=== PATIENT | female | born 1940 | race Caucasian/White ===

== ENCOUNTER → 2017-07-13 | Outpatient (CLI) | payer MEDICARE ==
[2017-07-13 11:17] LABS: Blood Urea Nitrogen 16 mg/dL (7-17)
== END | disposition home or self-care (01) ==
LOC: LABWHC1 10:22
PROVIDERS: ATTEND Physical Medicine & Rehabilitation
DX: Z01.812 Encounter for preprocedural laboratory examination (principal); N28.9 Disorder of kidney and ureter, unspecified
CPT/HCPCS: 36415; 82565; 84520

== ENCOUNTER → 2017-10-08 | Outpatient (CLI) | payer MEDICARE ==
[2017-10-08 08:53] LABS: Basophils % (A) 0 %; Eosinophils # (A) 0.2 k/uL (0-0.7); Eosinophils % (A) 3 %; HCT 42.6 % (34.0-46.0); HGB 13.7 gm/dL (11.4-16.0); Lymphocytes # (A) 1.5 k/uL (1.0-4.8); Lymphocytes % (A) 27 %; MCH 28.8 pg (25.0-35.0); MCHC 32.3 g/dL (31.0-37.0); MCV 89.3 fL (80.0-100.0); Mean Platelet Volume 7.4; Monocytes # (A) 0.4 k/uL (0-1.0); Monocytes % (A) 7 %; Neutrophils # (A) 3.3 k/uL (1.3-7.7); Neutrophils % (A) 60 %; Platelet Count 209 k/uL (150-450); RBC 4.77 m/uL (3.80-5.40); WBC 5.5 k/uL (3.8-10.6)
[2017-10-08 08:56] LABS: Appearance,Urine Clear (Clear); Bilirubin,Urine Negative (Negative); Blood,Urine Negative (Negative); Color,Urine Yellow; Glucose,Urine (UA) Negative (Negative); Ketones,Urine Negative (Negative); Leukocyte Esterase,Urine Moderate (Negative); Mucus,Urine Rare /hpf; Nitrite,Urine Negative (Negative); PH, Urine 5.5 (5.0-8.0); Protein,Urine Negative (Negative); RBC,Urine 1 /hpf (0-5); Specific Gravity,Urine 1.017 (1.001-1.035); Urobilinogen,Urine <2.0 mg/dL (<2.0); WBC,Urine 4 /hpf (0-5)
[2017-10-08 09:05] LABS: Albumin 3.9 g/dL (3.5-5.0); Calcium 9.7 mg/dL (8.4-10.2); Potassium 4.6 mmol/L (3.5-5.1); Total Bilirubin 0.5 mg/dL (0.2-1.3); Total Protein 6.3 g/dL (6.3-8.2)
[2017-10-08 09:20] LABS: T4, Free (Free Thyroxine) 1.04 ng/dL (0.78-2.19)
[2017-10-08 17:19] LABS: Iron Saturation 32.64 (12.00-45.00); Rheumatoid Factor 6 IU/mL (0-15)
[2017-10-08 17:48] LABS: Folate, Serum >24.0 ng/mL
[2017-10-08 18:57] LABS: Hemoglobin A1C 5.7 % (4.0-6.0)
[2017-10-09 11:24] LABS: ANA Pattern Homogeneous
== END | disposition home or self-care (01) ==
LOC: LABWHC1 08:13
PROVIDERS: ATTEND Internal Medicine
DX: Z00.00 Encounter for general adult medical examination without abnormal findings (principal); C20 Malignant neoplasm of rectum; M19.90 Unspecified osteoarthritis, unspecified site; E78.00 Pure hypercholesterolemia, unspecified; G62.9 Polyneuropathy, unspecified
CPT/HCPCS: 36415; 80053; 80061; 81001; 82378; 82550; 82607; 82728; 82746; 83036; 83540; 83550; 83883; 84439; 84443; 84550; 85025; 86038; 86039; 86431

== ENCOUNTER → 2017-11-20 | Outpatient (CLI) | payer MEDICARE ==
[2017-11-20 15:13] LABS: T4, Free (Free Thyroxine) 0.95 ng/dL (0.78-2.19)
== END | disposition home or self-care (01) ==
LOC: LABWHC1 14:23
PROVIDERS: ATTEND Otolaryngology
DX: E04.1 Nontoxic single thyroid nodule (principal)
CPT/HCPCS: 36415; 84439; 84443; 86376

== ENCOUNTER → 2017-11-29 | Outpatient (CLI) | payer MEDICARE, OTHER ==
--- NOTE | 2017-11-29 10:21 | US ---
EXAMINATION TYPE: US thyroid st tissue head/neck DATE OF EXAM: 11/29/2017 COMPARISON: NONE CLINICAL HISTORY: E04.[address] exam enlarged thyroid GLAND SIZE: Right Lobe: 3.6 x 1.4 x 1.2 cm Overall Parenchyma: heterogenous Left Lobe: 3.8 x 1.4 x 1.3 cm Overall Parenchyma: homogeneous Isthmus Thickness: 0.3 cm NODULES RIGHT: # of nodules measured on right: 0 LEFT: # of nodules measured on left: 1 1. 0.7 X 0.7 x 0.5 cm mixed nodule at the mid pole with well-defined margins; . This nodule is wid er than tall and shows intranodular vascularity. Prior size: no prior ISTHMUS: # of nodules measured in the isthmus: 0 Bilateral neck scanned, no evidence of lymphadenopathy. IMPRESSION: Nonspecific subcentimeter nodule left thyroid lobe.
== END | disposition home or self-care (01) ==
LOC: RADUSWWP 09:35
PROVIDERS: ATTEND Otolaryngology
DX: E04.1 Nontoxic single thyroid nodule (principal)
CPT/HCPCS: 76536

== ENCOUNTER → 2018-01-11 | Day surgery (SDC) | payer MEDICARE, OTHER ==
[2018-01-04 15:55] VITALS: BMI 25.7
[~2018-01-11] MED LIST: ACETAMINOPHEN TAB 500 MG TAB PO ONE; DEXAMETHASONE SOD PHOSPHATE 10 MG/ML 1 ML VIAL IV ONE; EPINEPHrine 4 MG in SODIUM CHLORIDE 0.9% IRRIGATIO 3,000 ML IRRIGATION ONE; GLYCOPYRROLATE 0.2 MG/ML 2 ML VIAL ONE; HYDROcodone/APAP 5-325MG 1 EACH TAB PO ONE; LACTATED RINGERS 1,000 ML IV ONE; LACTATED RINGERS 1,000 ML IV SCH; LIDOCAINE 1% 20 ML VIAL (10MG/ML) FOR IV START INTRADERMA PRN; LIDOCAINE 1% INJ 10MG/ML (20 ML MDV) ONE; LIDOCAINE 2%-EPI 1:100,000 20 ML VIAL ONE; MIDAZOLAM 2 MG/2 ML VIAL IVP ONE; ONDANSETRON 4 MG/2 ML VIAL IVP ONE; PROPOFOL 10 MG/ML 20 ML VIAL IV ONE; ROPIVACAINE 5 MG/ML 30 ML VIAL ONE; SCOPOLAMINE 1.5MG/72HR PATCH TRANSDERM ONE; SODIUM CHLORIDE 0.9% 100 ML BAG ONE; SUCCINYLCHOLINE CHLORIDE 100 MG/5 ML SYR IV ONE; TRANEXAMIC ACID 1,000 MG in SODIUM CHLORIDE 0.9% 50 ML IVPB ONE; TRANEXAMIC ACID 1,000 MG/10 ML VIAL ONE; ceFAZolin IN SWFI 2 GM/20 ML SYRINGE IVP ONE; fentaNYL (PF) 50 MCG/ML 2 ML AMP IVP ONE; fentaNYL (PF) 50 MCG/ML 2 ML AMP ONE
[2018-01-11 12:42] VITALS: RESP 16
[2018-01-11 17:55] VITALS: TEMP 98
--- NOTE | 2018-01-11 18:09 | P.OP ---
Date of Procedure: 01/11/18 Procedure(s) Performed: PREOPERATIVE DIAGNOSES: 1. Right shoulder rotator cuff tear. 2. Chronic impingement syndrome. 3. Acromioclavicular osteoarthritis. 4. Superior labral degenerative tear. POSTOPERATIVE DIAGNOSES: 1. Right shoulder large rotator cuff tear (supraspinatus and part infraspinatus, 3 cm). 2. Chronic impingement syndrome. 3. Acromioclavicular osteoarthritis. 4. Labral degenerative tear. 5. Severe biceps tendon degeneration 6. Moderate adhesions glenohumeral joint and subacromial space PROCEDURES PERFORMED: 1. Right shoulder arthroscopy with rotator cuff repair 2. Arthroscopic subacromial decompression 3. Arthroscopic partial distal clavicle excision 4. Arthroscopic debridement superior labral tear and biceps tenotomy 5. Arthroscopic lysis of adhesions with subacromial bursectomy ANESTHESIA: General. ESTIMATED BLOOD LOSS: Less than 25 mL TOURNIQUET: None TELLER: Erin Dumont PA-C (assistance with: Positioning, retraction , camera operation, repair, closure, dressing) COMPLICATIONS: None. DISPOSITION: To postanesthesia care unit INDICATIONS: Mrs. Plasencia is a 77 year old female with a history of rotator cuff difficulties. She is very active, [id number], and has noted progressive weakness and pain with regard to the right shoulder.. MRI was indicative of a significant tear, and the patient wishes to have it repaired. I have examined the patient in the office and proposed rotator cuff repair via an arthroscopic or mini-open approach, as well as other procedures to optimize the shoulder and outcome, such as decompression of spurs and debridement of loose or degenerated tissue. She has fairly significant rotator cuff atrophy and fat deposition into the supraspinatus fossa which I have explained to her may compromise her ultimate outcome and strength. I have explained the risks of this surgery as being inclusive of, but not limited to: bleeding, infection, scarring, discomfort, blood vessel and/or nerve damage, need for further surgery , stiffness, persistence or worsening of problems, , and other risks. The consent form has been completed and signed. PROCEDURE: Appropriate consent was obtained from the patient. The patient was taken to the operating room and placed in the supine position. General anesthesia was initiated and after confirmation of adequate anesthesia, the patients right shoulder was examined. Initial range of motion showed flexion to 160 abduction to 150, external rotation to 60 and internal rotation to 50. Using Codman's paradox maneuver, the shoulder was gently manipulated into full range of motion with forward flexion being 175, abduction 175, external rotation 75 and internal rotation with the arm in abduction 70 . The shoulder was stable. Next, the patient was rotated into the lateral decubitus position and stabilized to the table with a gordon bag and padded straps. Care was taken to make sure that all pressure points were adequately padded. Bear-hugger was used along with bilateral leg sequential compression devices. Prepping and draping was completed in the usual aseptic fashion using ChloraPrep. The patient received intravenous antibiotics prior to incision. The shoulder was suspended from traction with 15 lbs. of weight in a position of 45 degrees abduction. Landmarks were outlined with a skin marking pen. A spinal needle was inserted into the glenohumeral joint and fluid was administered to distend the joint. Minimal pressure was noted after 100 mL was administered. A posterior portal was created using an 11 blade and the arthroscopic canula, over a dull trocar, was carefully inserted into the joint. Arthroscopy then commenced. An anterior portal was inserted in the rotator interval area using inside-out technique. Biceps tendon showed severe deterioration. Biceps tenotomy was performed using a shaver. The tendon stump was then allowed to retract into the bicipital groove. Teres minor attachment was normal. Subscapularis tendon was normal. Hyaline cartilage of the glenoid and humeral head showed degenerative changes typical for age. Minor chondral smoothing using a radio frequency device on a low setting was performed. Supraspinatus attachment after superficial debridement showed a 3 cm tear which was full thickness and extended into the infraspinatus tendon. No loose bodies were noted in the joint. Superior labrum showed moderate degenerative tearing but was well-attached. Negative peel back sign. There was also evidence of minor degenerative labral tearing in the inferior area. Loose fibers of labrum in this area were debrided away back to stable labrum. Synovitis with adhesions was noted superior to the superior labrum and within the rotator interval. This was debrided and removed where the capsule appeared inflamed, using an arthroscopic shaver. Attention was then directed to the subacromial space. The camera and instruments were redirected into the subacromial space and bursoscopy was performed. The patients bursa was inflamed and thickened, indicating chronic bursitis. A lateral portal was created using outside-in technique. The supraspinatus tendon was examined particularly closely. There was an approximately 3 cm full thickness U-shaped tear. The loose fibers of the tear were debrided back to stable tissue and the defect in the tendon was repaired arthroscopically after careful preparation of the supraspinatus footprint with cassandra and rasp to create a good bleeding surface of bone, see below. Tendon quality however was somewhat poor with very limited mobility of the tendon at the bottom of the U, but adequate mobility of the anterior and posterior leaflets. The subacromial bursa contained moderate degenerative appearing adhesions within the superior space, but also the lateral anterior and posterior spaces as well. This degenerative material which consisted of thickened bursal material, was resected using a shaver. Meticulous hemostasis was maintained using the ArthroCare device. The undersurface of the acromion had frictional changes consistent with impingement syndrome. The underside of the acromion anteriorly was cleared of soft tissue using an arthroscopic radiofrequency ablator. The frictional changes of the rotator cuff matched exactly the location of the rotator cuff tear in the critical zone. A minimal subacromial decompression was performed using a cassandra. Approximately 3-4 mm of material was removed from the anterior-inferior corner of the acromion where a spur was located. This resection was carefully beveled upwards laterally, and carried to the AC joint. The AC joint appeared arthritic with inferior spurring. This spurring was removed with a cassandra, co-planing the resection with the acromial resection. The rotator cuff tear was then repaired as follows. Supraspinatus footprint was debrided back to bleeding bone using a cassandra. Full decortication was not performed. 3 simple margin convergence type sutures of #2 FiberWire were deployed into the medial portion of the rotator cuff tear. A reverse mattress suture using Fiber Tape from [employer] was deployed into the torn supraspinatus edge. A 4.75 mm Swivelock anchor was then deployed at the greater tuberosity and the suture tension was adjusted so that there was complete reduction and coverage of the footprint. The #2 suture contained within the anchor was also used for additional fixation of the cuff tissue, and applying a horizontal mattress type suture and tying the suture with alternating half hitches arthroscopically. It was noted that there was complete closure of the cuff defect. The repair was stable. Subsequently, 4-0 Monocryl was used to close the portal holes. Steri-strips were applied as well as sterile dressing. The shoulder was then placed into a sling and the patient was transferred to recovery room in stable condition. Sponge and needle counts were correct.
[2018-01-11] MEDS: HYDROmorphone 0.5 MG/0.5 ML SYRINGE IVP PRN ×3 (18:11→18:29)
[2018-01-11 19:12] VITALS: BP 172/83; PULSE 80
--- NOTE | 2018-01-16 09:50 | CDI ---
Date: 01/16/18 CDS/Farebox Repairer Name: Sangita Germain Phone: If any questions, call [facility] [employer] Maker at [phone] Patient Name: Gin Plasencia Admit Date: 01/11/18 Discharge Date: 01/11/18 ATTENTION: The [facility] Coding Staff appreciate your assistance in clarifying documentation. Please respond to the clarification below the line at the bottom and electronically sign. The [facility] Coding staff will review the response and follow-up if needed. Please note: Queries are made part of the Legal Health Record. If you have any questions, please contact the Fiberglass Boat Maker. Dear Dr. Chicas, Please provide clarification on the Single nerve block injection arm that is charged on this account. Please clarify if this is part of the anesthesia for the procedure or for post-operative pain. Thank you for your kind consideration. MTDD
--- NOTE | 2018-01-29 14:09 | CDI ---
Date: 01/29/18 CDS/Inspector Final Assembly Electrical Name: Sangita Germain Phone: If any questions, call Valencia Owusu Leadership Program Associate at [phone] Patient Name: Gin Plasencia Admit Date: 01/11/18 Discharge Date: 01/11/18 ATTENTION: The [facility] Coding Staff appreciate your assistance in clarifying documentation. Please respond to the clarification below the line at the bottom and electronically sign. The [facility] [facility] Coding staff will review the response and follow-up if needed. Please note: Queries are made part of the Legal Health Record. If you have any questions, please contact the Leadership Program Associate. Dear Dr. Chicas, Please provide clarification on the Single nerve block injection arm that is charged on this account. Please clarify if this is part of the anesthesia for the procedure or for post-operative pain. Thank you for your kind consideration. MTDD
== END | disposition home or self-care (01) ==
LOC: OR 12:10
PROVIDERS: ATTEND Orthopaedic Surgery
DX: M75.101 Unspecified rotator cuff tear or rupture of right shoulder, not specified as traumatic (principal); M75.41 Impingement syndrome of right shoulder; M19.90 Unspecified osteoarthritis, unspecified site; S43.431A Superior glenoid labrum lesion of right shoulder, initial encounter; X58.XXXA Exposure to other specified factors, initial encounter; M75.01 Adhesive capsulitis of right shoulder; E03.9 Hypothyroidism, unspecified; E78.5 Hyperlipidemia, unspecified; E06.3 Autoimmune thyroiditis; M35.00 Sjogren syndrome, unspecified; Z85.048 Personal history of other malignant neoplasm of rectum, rectosigmoid junction, and anus; Z79.890 Hormone replacement therapy; Z79.899 Other long term (current) drug therapy
CPT/HCPCS: 29826; 29827; 29824; 64415; C1713 ×2; C1894; J0171; J2250; J1100; J2405; J2001; J3010; J2795; J0330; J2704; J1170; J0690

== ENCOUNTER → 2019-08-29 | Outpatient (CLI) | payer MEDICARE, OTHER ==
[2019-08-29 09:05] LABS: Basophils % (A) 1 %; Eosinophils # (A) 0.3 k/uL (0-0.7); Eosinophils % (A) 6 %; HCT 43.5 % (34.0-46.0); HGB 13.6 gm/dL (11.4-16.0); Lymphocytes # (A) 1.7 k/uL (1.0-4.8); Lymphocytes % (A) 31 %; MCH 28.5 pg (25.0-35.0); MCHC 31.2 g/dL (31.0-37.0); MCV 91.2 fL (80.0-100.0); Mean Platelet Volume 7.9; Monocytes # (A) 0.4 k/uL (0-1.0); Monocytes % (A) 7 %; Neutrophils # (A) 2.9 k/uL (1.3-7.7); Neutrophils % (A) 54 %; Platelet Count 195 k/uL (150-450); RBC 4.77 m/uL (3.80-5.40); RDW 13.4 % (11.5-15.5); WBC 5.5 k/uL (3.8-10.6)
[2019-08-29 16:14] LABS: African American GFR (CKD) 94.2 (60.0-200.0); Albumin 4.1 g/dL (3.80-4.90); Albumin/Globulin Ratio 2.16 (1.60-3.17); Anion Gap 6.7 mmol/L (4.00-12.00); BUN/Creat Ratio 31.43 Ratio (12.00-20.00); Calcium 9.3 mg/dL (8.7-10.3); Carbon Dioxide 26.3 mmol/L (21.6-31.8); Chol/HDL Ratio 3.04; Globulin 1.9 g/dL (1.6-3.3); LDL Cholesterol,Calculated 142.4 mg/dL (0.0-131.0); Non-African American GFR(CKD) 81.3 (60.0-200.0); Potassium 5.1 mmol/L (3.5-5.5); Total Bilirubin 0.4 mg/dL (0.2-1.2); VLDL Calculation 14.6 mg/dL (5.00-40.00)
[2019-08-29 16:21] LABS: T4, Free (Free Thyroxine) 1.1 ng/dL (0.80-1.80)
== END | disposition home or self-care (01) ==
LOC: LABWHC1 08:22
PROVIDERS: ATTEND Internal Medicine
DX: E78.2 Mixed hyperlipidemia (principal); E03.9 Hypothyroidism, unspecified; M19.049 Primary osteoarthritis, unspecified hand
CPT/HCPCS: 36415; 80053; 80061; 84439; 84443; 85025

== ENCOUNTER → 2020-01-02 | Outpatient (CLI) | payer MEDICARE, OTHER ==
--- NOTE | 2020-01-02 11:32 | FL ---
EXAMINATION TYPE: FL UGI air w esophagus DATE OF EXAM: 01/02/2020 11:25 AM COMPARISON: NONE CLINICAL HISTORY: Difficulty in swallowing. Preliminary view of the abdomen reveals a normal bowel gas pattern. Upper GI examination was performed according to the single contrast technique. Esophageal peristal sis and motility are within normal limits. There is no evidence for esophagitis, intraluminal mass, or gastroesophageal reflux. Small sliding-type hiatal hernia noted. The stomach has a normal appeara nce in terms of its size, shape and location. No gastric filling defects or ulcer craters are seen. The duodenal bulb and sweep are also free of intraluminal lesion or ulcer crater. And single contrast cervical esophagram was also performed following the ingestion of thin liquid bar ium. There is no evidence for aspiration or penetration. No masses are seen. There is hypertrophy o f the cricopharyngeus muscle mild in degree. IMPRESSION: 1. Hypertrophy of the cricopharyngeus muscle mild in degree. 2. Small sliding-type hiatal hernia.
== END | disposition home or self-care (01) ==
LOC: RADUSWWP 10:48
PROVIDERS: ATTEND Internal Medicine
DX: J39.2 Other diseases of pharynx (principal); K44.9 Diaphragmatic hernia without obstruction or gangrene
CPT/HCPCS: 74246

== ENCOUNTER → 2021-10-07 | Outpatient (CLI) | payer MEDICARE ==
[~2021-10-07] MED LIST changes: -ACETAMINOPHEN TAB 500 MG TAB PO ONE; -DEXAMETHASONE SOD PHOSPHATE 10 MG/ML 1 ML VIAL IV ONE; -EPINEPHrine 4 MG in SODIUM CHLORIDE 0.9% IRRIGATIO 3,000 ML IRRIGATION ONE; -GLYCOPYRROLATE 0.2 MG/ML 2 ML VIAL ONE; -HYDROcodone/APAP 5-325MG 1 EACH TAB PO ONE; -LACTATED RINGERS 1,000 ML IV ONE; -LACTATED RINGERS 1,000 ML IV SCH; -LIDOCAINE 1% 20 ML VIAL (10MG/ML) FOR IV START INTRADERMA PRN; -LIDOCAINE 1% INJ 10MG/ML (20 ML MDV) ONE; -LIDOCAINE 2%-EPI 1:100,000 20 ML VIAL ONE; -MIDAZOLAM 2 MG/2 ML VIAL IVP ONE; -ONDANSETRON 4 MG/2 ML VIAL IVP ONE; -PROPOFOL 10 MG/ML 20 ML VIAL IV ONE; +REGADENOSON 0.4 MG/5 ML SYRINGE IV PRN; -ROPIVACAINE 5 MG/ML 30 ML VIAL ONE; -SCOPOLAMINE 1.5MG/72HR PATCH TRANSDERM ONE; -SODIUM CHLORIDE 0.9% 100 ML BAG ONE; -SUCCINYLCHOLINE CHLORIDE 100 MG/5 ML SYR IV ONE; -TRANEXAMIC ACID 1,000 MG in SODIUM CHLORIDE 0.9% 50 ML IVPB ONE; -TRANEXAMIC ACID 1,000 MG/10 ML VIAL ONE; -ceFAZolin IN SWFI 2 GM/20 ML SYRINGE IVP ONE; -fentaNYL (PF) 50 MCG/ML 2 ML AMP IVP ONE; -fentaNYL (PF) 50 MCG/ML 2 ML AMP ONE
--- NOTE | 2021-10-07 15:08 | NM ---
EXAMINATION TYPE: NM myocardial SPECT single DATE OF EXAM: 10/07/2021 COMPARISON: NONE HISTORY: I 25.10 Following administration of 9.8 mCi Tc 99m Sestamibi. Images obtained post injection. FINDINGS: Calculated ejection fraction is 61% Some mild decreased uptake noted along the anteroapical region IMPRESSION: Consider echocardiographic correlation for elevated ejection fraction. Difficult to exclude previous infarct. Exam is limited by the referring clinician.
== END | disposition home or self-care (01) ==
LOC: RADNMMAIN 08:54
PROVIDERS: ATTEND Internal Medicine
DX: I25.10 Atherosclerotic heart disease of native coronary artery without angina pectoris (principal)
CPT/HCPCS: 78451; A9500

== ENCOUNTER → 2021-10-31 | Outpatient (CLI) | payer MEDICARE ==
--- NOTE | 2021-10-31 19:06 | CA ---
Transthoracic Echo Report Name: Gin Plasencia Age: 81 Gender: F : 1940 Exam Date: 10/31/2021 14:47 Exam Location: [facility] Ht (in): 63 Wt (lb): 145 Ordering Physician: Danae Welch MD Attending/Referring Phys: Danae Welch MD Vp Care Management Mercedes Rich, ALYSSA Procedure CPT: Indications: I10 HYPERTENSION Cardiac Hx: Technical Quality: Good Contrast 1: Total Dose (mL): Contrast 2: Total Dose (mL): MEASUREMENTS (Male / Female) Normal Values 2D ECHO LV Diastolic Diameter PLAX 3.2 cm 4.2 - 5.9 / 3.9 - 5.3 cm LV Systolic Diameter PLAX 2.4 cm IVS Diastolic Thickness 1.1 cm 0.6 - 1.0 / 0.6 - 0.9 cm LVPW Diastolic Thickness 1.1 cm 0.6 - 1.0 / 0.6 - 0.9 cm LV Relative Wall Thickness 0.7 LA Systolic Diameter LX 4.1 cm 3.0 - 4.0 / 2.7 - 3.8 cm M-MODE Aortic Root Diameter MM 2.7 cm LA Systolic Diameter MM 3.2 cm LA Ao Ratio MM 1.2 AV Cusp Separation MM 2.0 cm DOPPLER MV Area PHT 3.0 cm??? Mitral E Point Velocity 64.8 cm/s Mitral A Point Velocity 103.6 cm/s Mitral E to A Ratio 0.6 MV Deceleration Time 254.1 ms FINDINGS Left Ventricle Left ventricular ejection fraction is estimated at 50-55%. Mildly increased left ventricular wall thickness. Right Ventricle Normal right ventricular size and function. Right Atrium Normal right atrial size. Left Atrium Mildly increased left atrial diameter. Mitral Valve Structurally normal mitral valve. Mild mitral regurgitation. Aortic Valve Trileaflet aortic valve. Mild aortic regurgitation. Tricuspid Valve Structurally normal tricuspid valve. Mild tricuspid regurgitation. Pulmonic Valve Structurally normal pulmonic valve. Pericardium Normal pericardium. Aorta Normal size aortic root and proximal ascending aorta. CONCLUSIONS Mild left ventricle hypertrophy with normal LV systolic function ejection fraction greater than 55% Normal RV size and function Previewed by: Dr. Lino Castro MD (Electronically Signed) Final Date: 31 October 2021 19:05
== END | disposition home or self-care (01) ==
LOC: RADECHMAIN 14:36
PROVIDERS: ATTEND Internal Medicine
DX: I08.3 Combined rheumatic disorders of mitral, aortic and tricuspid valves (principal); I10 Essential (primary) hypertension
CPT/HCPCS: 93306

== ENCOUNTER 2024-03-30 16:29 | Emergency (ER) | payer MEDICARE ==
[2024-03-30 16:51] VITALS: TEMP 98.6
--- NOTE | 2024-03-30 17:04 | CT ---
EXAMINATION TYPE: CT brain cspine wo con DATE OF EXAM: 03/30/2024 4:44 PM COMPARISON: None. CLINICAL INDICATION: Female, 83 years old with history of fall; Code COAG: Fall on thinners TECHNIQUE: Brain: Multiple axial CT images of the brain were obtained without IV contrast. Cspine: Axial CT images from the skull base to the inferior aspect of T2 we obtained without intraven ous contrast. Coronal and sagittal reformatted images were also reviewed. . CT DLP: 1384.3 mGycm, Automated exposure control for dose reduction was used. FINDINGS: Brain: Extra-axial spaces: No abnormal extra-axial fluid collections. Ventricular system: Within normal limits Cerebral parenchyma: No acute intraparenchymal hemorrhage or mass effect. The flores-white junction is well differentiated. Cerebellum: Unremarkable. Mass effect: No evidence of midline shift. Intracranial vasculature: Atherosclerotic calcifications of the intracranial vessels. Soft tissues: Normal. Calvarium/osseous structures: Acute fracture of the inferior orbital wall with 4 mm displacement. The re is a left lamina papyracea fracture also present with 2 mm displacement. Paranasal sinuses and mastoid air cells: Clear. Visualized orbits: Bilateral aphakia Cervical spine: Fracture: None. Osseous structures: Multilevel degenerative disc disease changes with endplate spurring and disc oste ophyte complex's. Ankylosis of the lateral facets of the on the right extending from C2 to C6 bilater ally. Vertebral alignment: Grade 1 anterolisthesis of C7 on T1 and T1 and T2. Spinal canal/Neural Foramina: No evidence of significant spinal canal narrowing. No evidence for sign ificant neural foraminal stenosis. Neck soft tissues: Prevertebral soft tissues are within normal limits. Other: The airway is patent. The lung apices are clear. IMPRESSION: 1. No acute intracranial process. 2. Left inferior orbital wall fracture with 4 mm displacement. 3. Left lamina papyracea fracture with 2 mm displacement. 4. No evidence of cervical spine fracture. 5. Moderate to severe multilevel degenerative disc disease. 6. 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 7. Grade 1 anterolisthesis of C7 on T1 and T1 and T2. [facility], , 03/30/2024 5:02 PM
--- NOTE | 2024-03-30 17:35 | ED ---
Fall HPI - General Chief Complaint: Fall Stated Complaint: FALL Time Seen by Provider: 03/30/24 16:42 Source: patient, family, RN notes reviewed Mode of arrival: EMS Limitations: no limitations - History of Present Illness Initial Comments: This is an 83-year-old female with history of cancer, on blood thinners, presenting with [place] and fall at mall [place] 1600 today. Patient states she was walking with her daughter at [facility] when she stubbed her left toe, causing her to fall forward and strike her head onto the solid floor. Daughter states patient did not lose consciousness but remained on ground until arrival of EMS 8-10 minutes later where she was placed into c-collar. Patient endorses laceration over her left eye with left knee, left hip and left wrist pain. Endorses diplopia of the left eye. Denies headache, neck pain, radiculopathy, paresthesia, dizziness/lightheadedness, nausea/vomiting. 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: yes, by family Place Fall Occurred: other Loss of Consciousness: none Prolonged Down Time?: no Symptoms Prior to Fall: none Location: head Location - Extremities: Left: Forearm, Knee Context: tripped/slipped Associated Symptoms: other (Left eye diplopia) - Related Data Home Medications Medication Instructions Recorded Confirmed Alendronate Sodium [Fosamax] 35 mg PO HOLLIS 01/04/18 01/04/18 Calcium Carb/Magnesium Hydrox 1 each PO DAILY 01/04/18 01/04/18 [Rolaids Chewable Tablet] Levothyroxine Sodium [Synthroid] 50 mcg PO DAILY 01/04/18 01/11/18 Multivitamins, Thera [Multivitamin 1 tab PO DAILY 01/04/18 01/04/18 (formulary)] Naproxen Sodium [Aleve] 220 mg PO DAILY 01/04/18 01/04/18 Rosuvastatin Calcium 5 mg PO DAILY 01/04/18 01/04/18 flaxseed oiL [[place]-3 Flaxseed Oil] 1,000 mg PO DAILY 01/04/18 01/04/18 Previous Rx's Medication Instructions Recorded HYDROcodone/APAP 5-325MG [[place] 1 - 2 each PO Q4-6H PRN #50 tab 01/11/18 5-325] Sennosides-Docusate Sodium 1 tab PO BID #60 tablet 01/11/18 [Senokot-S] Cephalexin [Keflex] 500 mg PO Q6HR 5 Days #20 cap 03/30/24 Allergies Allergy/AdvReac Type Severity Reaction Status Date / Time No Known Allergies Allergy Verified 01/04/18 15:44 Review of Systems ROS Statement: Those systems with pertinent positive or pertinent negative responses have been documented in the HPI. ROS Other: All systems not noted in ROS Statement are negative. Past Medical History Past Medical History: Cancer, Hyperlipidemia, Osteoarthritis (OA), Thyroid Disorder Additional Past Medical History / Comment(s): hx migraines, hiatal hernia, sjogrens, hx rectal cancer (radiation in 1999), ayana's disease History of Any Multi-Drug Resistant Organisms: None Reported Past Surgical History: Adenoidectomy, Cholecystectomy, Joint Replacement, Tonsillectomy Additional Past Surgical History / Comment(s): surgery to remove varicose veiins ra legs, surgery to remove rectal cancer, ra hip replacements(left x 2 ), left shoulder rotator cuff, ra cataracts Past Anesthesia/Blood Transfusion Reactions: Motion Sickness Past Psychological History: No Psychological Hx Reported Past Alcohol Use History: None Reported Past Drug Use History: None Reported - Past Family History Mother Family Medical History: Cancer Father Family Medical History: Cancer General Exam Limitations: no limitations General appearance: alert, in no apparent distress, other (Patient is in c- collar with dry blood noted on her left moravian/face) Head exam: Present: atraumatic, normocephalic, normal inspection Eye exam: Present: normal appearance, PERRL, EOMI, periorbital tenderness (Pos itive left periorbital tenderness especially superior aspect just inferior to laceration over left eye. No obvious crepitus, deformity or ecchymosis), other (FROM of both eyes in all directions. Negative proptosis. Rubalcava lamp reveals no corneal abrasion or Rodriguez sign). Absent: scleral icterus, conjunctival injection, nystagmus, periorbital swelling Pupils: Present: normal accommodation, other (Patient states initial diplopia has resolved) ENT exam: Present: normal exam, mucous membranes moist Neck exam: Present: normal inspection. Absent: tenderness, meningismus, lymphadenopathy Respiratory exam: Present: normal lung sounds bilaterally. Absent: respiratory distress, wheezes, rales, rhonchi, stridor Cardiovascular Exam: Present: regular rate, normal rhythm, normal heart sounds. Absent: systolic murmur, diastolic murmur, rubs, gallop, clicks GI/Abdominal exam: Present: soft, tenderness (Patient notes some minor tenderness in the right periumbilical region without guarding, rigidity), normal bowel sounds. Absent: distended, guarding, rebound, rigid Extremities exam: Present: full ROM, tenderness (Positive left patellar tenderness without obvious crepitus or deformity. Negative left hip tenderness. Some left distal ulnar abduction, which patient states may be normal. No obvious crepitus, open wound), normal capillary refill. Absent: pedal edema, joint swelling, calf tenderness Back exam: Present: normal inspection Neurological exam: Present: alert, oriented X3, CN II-XII intact Psychiatric exam: Present: normal affect, normal mood Skin exam: Present: warm, dry, intact, normal color. Absent: rash Course Vital Signs 03/30/24 16:46 Temperature 98.6 F Pulse Rate 71 Respiratory 18 Rate Blood Pressure 171/76 O2 Sat by Pulse 98 Oximetry Procedures - Laceration Laceration #1 Consent Obtained: verbal consent Indication: laceration Site: face Size (cm): 2 Description: linear Sedation/Analgesia: none Anesthetic Used: lidocaine 1% Anesthesia Technique: local infiltration Pre-repair: wound explored, irrigated extensively Type of Sutures: nylon Size of Sutures: 4-0 Number of Sutures: 6 Technique: running Complications: bleeding Patient Tolerated Procedure: well Additional Comments: Wound covered with 4 x 4 and wrapped with Kerlix gauze due to developing hematoma formation following procedure Medical Decision Making - Medical Decision Making Was pt. sent in by a medical professional or institution (, PA, DRUMS TEACHER, urgent care, hospital, or senior living...) When possible be specific @ -No Did you speak to anyone other than the patient for history (EMS, parent, family, police, friend...)? What history was obtained from this source @ -No Did you review nursing and triage notes (agree or disagree)? Why? @ -I reviewed and agree with nursing and triage notes Were old charts reviewed (outside hosp., previous admission, EMS record, old EKG, old radiological studies, urgent care reports/EKG's, senior living records)? Report findings @ -No old charts were reviewed Differential Diagnosis (chest pain, altered mental status, abdominal pain women, abdominal pain men, vaginal bleeding, weakness, fever, dyspnea, syncope, headache, dizziness, GI bleed, back pain, seizure, CVA, palpatations, mental health, musculoskeletal)? @ -Differential Headache: Migraine, tension, cluster, carbon monoxide, central venous thrombosis, pension karma temporal arteritis, acute closure glaucoma, intercranial hemorrhage, mas toiditis, sinusitis, head injury, this is not meant to be an all-inclusive list. EKG interpreted by me (3pts min.). @ -Not done X-rays interpreted by me (1pt min.). @ -X-ray of left hip wrist and knee show no acute fracture or dislocation. CT interpreted by me (1pt min.). @ -Head/cervical spine CT shows left inferior orbital wall fracture with 4 mm displacement and left lamina papyracea fracture with 2 mm displacement. No acute intracranial process or cervical spine fracture. U/S interpreted by me (1pt. min.). @ -None done What testing was considered but not performed or refused? (CT, X-rays, U/S, labs)? Why? @ -None What meds were considered but not given or refused? Why? @ -None Did you discuss the management of the patient with other professionals (professionals i.e. , PA, DRUMS TEACHER, lab, RT, psych nurse, social work associate, time study clerk, teacher, pharmaceutical officer, corrections caseworker)? Give summary @ -No Was smoking cessation discussed for >3mins.? @ -No Was critical care preformed (if so, how long)? @ -No Were there social determinants of health that impacted care today? How? (Homelessness, low income, unemployed, alcoholism, drug addiction, transportatio n, low edu. Level, literacy, decrease access to med. care, long-term, rehab)? @ -No Was there de-escalation of care discussed even if they declined (Discuss DNR or withdrawal of care, Hospice)? DNR status @ -No What co-morbidities impacted this encounter? (DM, HTN, Smoking, COPD, CAD, Cancer, CVA, ARF, Chemo, Hep., AIDS, mental health diagnosis, sleep apnea, morbid obesity)? @ -None Was patient admitted / discharged? Hospital course, mention meds given and route, prescriptions, significant lab abnormalities, going to OR and other pertinent info. @ -Lab work unremarkable. X-ray of left hip wrist and knee show no acute fracture or dislocation. Head/cervical spine CT shows left inferior orbital wall fracture with 4 mm displacement and left lamina papyracea fracture with 2 mm displacement. No acute intracranial process or cervical spine fracture. Removed cervical collar. Bilateral ocular motor function intact without entrapment. Fluorescein dye with Rubalcava lamp revealed no corneal abrasion or Rodriguez sign. Laceration cleaned and sutured under sterile conditions. Attempted contacting Dr. Johnson from ophthalmology for further evaluation but there was no answer. Visual acuity testing is normal chart performed prior to discharge. Prophylactic Keflex sent to pharmacy. Advised patient follow-up with ophthalmology/ENT for orbital wall fracture blowout. Advised not to blow n ose. Advised medical follow-up in 5 to 7 days for suture removal. Undiagnosed new problem with uncertain prognosis? @ -No Drug Therapy requiring intensive monitoring for toxicity (Heparin, Nitro, Insulin, Cardizem)? @ -No Were any procedures done? @ -No Diagnosis/symptom? @ -Orbital wall fracture, fall with concussion without loss of consciousness, forehead laceration Acute, or Chronic, or Acute on Chronic? @ -Acute Uncomplicated (without systemic symptoms) or Complicated (systemic symptoms)? @ -Complicated Side effects of treatment? @ -No Exacerbation, Progression, or Severe Exacerbation? @ -No Poses a threat to life or bodily function? How? (Chest pain, USA, MA, pneumonia, PE, COPD, DKA, ARF, appy, cholecystitis, CVA, Diverticulitis, Homicidal, Suicidal, threat to staff... and all critical care pts) @ -Orbital wall fractures poses threat to vision - Lab Data Result diagrams: 03/30/24 18:10 03/30/24 18:10 Lab Results 03/30/24 03/30/24 03/30/24 Range/Units 18:10 18:10 18:10 WBC 9.4 (3.8-10.6) k/uL RBC 4.47 (3.80-5.40) m/uL Hgb 13.0 (11.4-16.0) gm/dL Hct 40.0 (34.0-46.0) % MCV 89.3 (80.0-100.0) fL MCH 29.1 (25.0-35.0) pg MCHC 32.5 (31.0-37.0) g/dL RDW 14.5 (11.5-15.5) % Plt Count 195 (150-450) k/uL MPV 8.3 Neutrophils % 72 % Lymphocytes % 17 % Monocytes % 6 % Eosinophils % 3 % Basophils % 0 % Neutrophils # 6.8 (1.3-7.7) k/uL Lymphocytes # 1.6 (1.0-4.8) k/uL Monocytes # 0.5 (0-1.0) k/uL Eosinophils # 0.3 (0-0.7) k/uL Basophils # 0.0 (0-0.2) k/uL PT 10.6 (10.0-12.5) sec INR 1.0 (<1.2) APTT 19.5 L (22.0-30.0) sec Sodium 140 (137-145) mmol/L Potassium 4.3 (3.5-5.1) mmol/L Chloride 107 (98-107) mmol/L Carbon Dioxide 25 (22-30) mmol/L Anion Gap 8 mmol/L BUN 23 H (7-17) mg/dL Creatinine 0.61 (0.52-1.04) mg/dL Est GFR (CKD-EPI)AfAm >90 (>60 ml/min/1.73 sqM) Est GFR (CKD-EPI)NonAf 83 (>60 ml/min/1.73 sqM) Glucose 89 (74-99) mg/dL Plasma Lactic Acid Daniel (0.7-2.0) mmol/L Calcium 9.6 (8.4-10.2) mg/dL Total Bilirubin 0.4 (0.2-1.3) mg/dL AST 34 (14-36) U/L ALT 21 (4-34) U/L Alkaline Phosphatase 73 (38-126) U/L Total Protein 6.4 (6.3-8.2) g/dL Albumin 3.9 (3.5-5.0) g/dL 03/30/24 Range/Units 18:10 WBC (3.8-10.6) k/uL RBC (3.80-5.40) m/uL Hgb (11.4-16.0) gm/dL Hct (34.0-46.0) % MCV (80.0-100.0) fL MCH (25.0-35.0) pg MCHC (31.0-37.0) g/dL RDW (11.5-15.5) % Plt Count (150-450) k/uL MPV Neutrophils % % Lymphocytes % % Monocytes % % Eosinophils % % Basophils % % Neutrophils # (1.3-7.7) k/uL Lymphocytes # (1.0-4.8) k/uL Monocytes # (0-1.0) k/uL Eosinophils # (0-0.7) k/uL Basophils # (0-0.2) k/uL PT (10.0-12.5) sec INR (<1.2) APTT (22.0-30.0) sec Sodium (137-145) mmol/L Potassium (3.5-5.1) mmol/L Chloride (98-107) mmol/L Carbon Dioxide (22-30) mmol/L Anion Gap mmol/L BUN (7-17) mg/dL Creatinine (0.52-1.04) mg/dL Est GFR (CKD-EPI)AfAm (>60 ml/min/1.73 sqM) Est GFR (CKD-EPI)NonAf (>60 ml/min/1.73 sqM) Glucose (74-99) mg/dL Plasma Lactic Acid Daniel 1.8 (0.7-2.0) mmol/L Calcium (8.4-10.2) mg/dL Total Bilirubin (0.2-1.3) mg/dL AST (14-36) U/L ALT (4-34) U/L Alkaline Phosphatase (38-126) U/L Total Protein (6.3-8.2) g/dL Albumin (3.5-5.0) g/dL Disposition Clinical Impression: Fall, Orbital wall fracture, Concussion, Forehead laceration Disposition: HOME SELF-CARE Condition: Good Instructions (If sedation given, give patient instructions): Care For Your Stitches (ED), Facial Fracture (ED), Fall Prevention for Older Adults (ED) Additional Instructions: Do not blow nose. Keep sutures clean with antibacterial soap and water. Follow-up with any medical provider for removal in 5 to 7 days Prescriptions: Cephalexin [Keflex] 500 mg PO Q6HR 5 Days #20 cap Is patient prescribed a controlled substance at d/c from ED?: No Referrals: Danae Welch MD [Primary Care Provider] - 1-2 days Johnnie Johnson MD [STAFF PHYSICIAN] - 1-2 days Tate Malave DO [Doctor of Osteopathic Medicine] - 1-2 days Time of Disposition: 19:08
--- NOTE | 2024-03-30 18:19 | XR ---
EXAMINATION TYPE: XR knee complete LT DATE OF EXAM: 03/30/2024 5:49 PM COMPARISON: None CLINICAL INDICATION: Female, 83 years old with history of Fall with pain; PHH, pain TECHNIQUE: XR knee complete LT 3 views submitted. FINDINGS: No evidence of any acute osseous pathology, soft tissue swelling, or joint effusion is no raya. Tricompartmental osteophyte formation involving the femoral condyles, tibial plateau and patella . Mild joint space narrowing. Atherosclerosis of the arterial vasculature. IMPRESSION: 1. No acute osseous pathology. 2. Mild tricompartmental osteoarthritic changes. [facility], , 03/30/2024 6:16 PM
--- NOTE | 2024-03-30 18:19 | XR ---
EXAMINATION TYPE: XR wrist limited LT DATE OF EXAM: 03/30/2024 5:49 PM COMPARISON: None CLINICAL INDICATION: Female, 83 years old with history of Fall with pain; PHH, pain TECHNIQUE: XR wrist limited LT; examined in the Frontal, navicular, lateral, and oblique. FINDINGS: Fixation hardware in the distal left radius is intact. Mild multifocal degeneration changes of the wrist with osteophyte formation and joint space narrowing. No acute osseous pathology, joint dislocation, or joint effusion. IMPRESSION: Fixation hardware in the left wrist appears intact. No acute osseous process. [facility], , 03/30/2024 6:17 PM
--- NOTE | 2024-03-30 18:22 | XR ---
EXAMINATION TYPE: XR Hip Complete LT DATE OF EXAM: 03/30/2024 5:49 PM COMPARISON: None CLINICAL INDICATION: Female, 83 years old with history of Fall with pain; PHH, pain TECHNIQUE: XR Hip Complete LT; Frontal and lateral views FINDINGS: Post arthroplasty changes, hardware is intact, alignment is appropriate. No evidence of fra cture. No evidence of any acute osseous pathology or joint dislocation. IMPRESSION: Hip arthroplasty with hardware intact and in appropriate alignment. No acute fracture. [facility], , 03/30/2024 6:20 PM
[2024-03-30] MEDS: LIDOCAINE 1% INJ 10MG/ML (20 ML MDV) SQ ONE (18:23)
[2024-03-30 18:27] LABS: Basophils % (A) 0 %; Eosinophils # (A) 0.3 k/uL (0-0.7); Eosinophils % (A) 3 %; Lymphocytes # (A) 1.6 k/uL (1.0-4.8); Lymphocytes % (A) 17 %; MCH 29.1 pg (25.0-35.0); MCHC 32.5 g/dL (31.0-37.0); MCV 89.3 fL (80.0-100.0); Mean Platelet Volume 8.3; Monocytes # (A) 0.5 k/uL (0-1.0); Monocytes % (A) 6 %; Neutrophils # (A) 6.8 k/uL (1.3-7.7); Neutrophils % (A) 72 %; Platelet Count 195 k/uL (150-450); RBC 4.47 m/uL (3.80-5.40); RDW 14.5 % (11.5-15.5); WBC 9.4 k/uL (3.8-10.6)
[2024-03-30 18:36] LABS: ALT 21 U/L (4-34); African American GFR (CKD) >90 (>60 ml/min/1.73 sqM); Albumin 3.9 g/dL (3.5-5.0); Anion Gap 8 mmol/L; Blood Urea Nitrogen 23 mg/dL (7-17); Calcium 9.6 mg/dL (8.4-10.2); Carbon Dioxide 25 mmol/L (22-30); Chloride 107 mmol/L (98-107); Glucose 89 mg/dL (74-99); Non-African American GFR(CKD) 83 (>60 ml/min/1.73 sqM); Sodium 140 mmol/L (137-145); Total Bilirubin 0.4 mg/dL (0.2-1.3); Total Protein 6.4 g/dL (6.3-8.2)
[2024-03-30 18:46] LABS: Prothrombin Time 10.6 sec (10.0-12.5)
[2024-03-30 18:55] LABS: Partial Thromboplastin Time 19.5 sec (22.0-30.0)
[2024-03-30 19:23] LABS: AST 34 U/L (14-36); Alkaline Phosphatase 73 U/L (38-126); Potassium 4.3 mmol/L (3.5-5.1)
[2024-03-30 20:45] VITALS: BP 164/87; PULSE 67; RESP 16
== END 2024-03-30 20:28 | disposition home or self-care (01) ==
LOC: EC 16:29
DX: S06.0X0A Concussion without loss of consciousness, initial encounter (principal); S02.32XA Fracture of orbital floor, left side, initial encounter for closed fracture; S01.81XA Laceration without foreign body of other part of head, initial encounter; R40.2252 Coma scale, best verbal response, oriented, at arrival to emergency department; R40.2142 Coma scale, eyes open, spontaneous, at arrival to emergency department; R40.2362 Coma scale, best motor response, obeys commands, at arrival to emergency department; M25.562 Pain in left knee; W01.0XXA Fall on same level from slipping, tripping and stumbling without subsequent striking against object, initial encounter; Y93.01 Activity, walking, marching and hiking; Z79.01 Long term (current) use of anticoagulants; Y92.59 Other trade areas as the place of occurrence of the external cause
CPT/HCPCS: 36415; 80053; 83605; 85025; 85610; 85730; 73502; 73100; 73562; 72125; 70450; 12011; 99285; J2003

== ENCOUNTER → 2024-09-15 | Outpatient (CLI) | payer MEDICARE ==
--- NOTE | 2024-09-15 10:14 | US ---
EXAMINATION TYPE: US arterial LE single level DATE OF EXAM: 09/15/2024 9:47 AM COMPARISONS: None. CLINICAL INDICATION: Female, 84 years old with history of I73.9 PERIPHERAL VASCULAR DISEASE, UNSPECIF IED; heaviness in bilat legs for 1 years, inhibits her walking TECHNIQUE: Systolic pressures were taken of the upper and lower extremity arteries with ankle-brachia l indices and toe brachial indices calculated bilaterally. History of: Smoker: n Hypertension: y Diabetic: n Hyperlipidemia: y TIA/CVA: n Previous Vascular Surgery: n CAD: n NC: n Vascular Ulcers: n Claudication: n Gangrene: n FINDINGS: Doppler Waveforms: Right: Multiphasic Left: Multiphasic Brachial Artery systolic pressure: Right: 148 Left: 147 Posterior Tibial artery systolic pressure: Right: 149 Left: 168 Dorsalis Pedis artery systolic pressure: Right: 165 Left: 167 Ankle-Brachial Indices: Right: 1.11 Left: 1.14 Toe Brachial Indices: Right: Unable to obtain. Left: Unable to obtain. (Normal > 0.6; Mild 0.35 - 0.59, Moderate 0.12 - 0.34, Severe <0.12) IMPRESSION: No suspicious areas of stenosis identified. [facility], , 09/15/2024 10:11 AM
== END | disposition home or self-care (01) ==
LOC: RADUSWWP 09:17
PROVIDERS: ATTEND Internal Medicine
DX: I73.9 Peripheral vascular disease, unspecified (principal); I10 Essential (primary) hypertension; E78.5 Hyperlipidemia, unspecified
CPT/HCPCS: 93922